=== PATIENT | female | born 1980 | race Caucasian/White ===

== ENCOUNTER 2018-10-25 21:39 | Emergency (ER) | payer BC ==
[~2018-10-25] VITALS: Ht 160 cm; Wt 99.8 kg
[~2018-10-25 21:39] MED LIST: ACETAMINOPHEN-1 EAC1 PO; LUVOX 50MG TABL50 M1 PO; MEDROLDOSEPACK PO; NEURONTIN 300300 M1 PO; PROAIR HFA8.5 GM INH; PROMETHAZINE D480 ML PO; TESSALON PERLE100 MG PO; WELLBUTRIN XL300 MG PO; XANAX 0.5 MG0.5 MG PO; ZPAK PO
[2018-10-25 22:01] LABS: URINE BILIRUBIN NEGATIVE (Negative); URINE BLOOD NEGATIVE (Negative); URINE CLARITY CLEAR; URINE COLOR YELLOW; URINE GLUCOSE-RANDOM NEGATIVE (Negative); URINE KETONES NEGATIVE (Negative); URINE LEUKOCYTES-REFLEX NEGATIVE (Negative); URINE NITRITE-REFLEX NEGATIVE (Negative); URINE PROTEIN NEGATIVE (Negative); URINE SPECIFIC GRAVITY 1.015 (1.005-1.030); URINE UROBILINOGEN 0.2 E.U./dl (0.2-1.0)
[2018-10-25 22:04] LABS: ABSOLUTE BASOPHILS 0.1 thou/uL (0.0-0.2); ABSOLUTE EOSINOPHILS 0.2 thou/uL (0.0-0.7); ABSOLUTE LYMPHOCYTES 2.6 thou/uL (0.8-5.3); ABSOLUTE MONOCYTES 0.7 thou/uL (0.0-1.2); ABSOLUTE NEUTROPHILS 8.6 thou/uL (1.6-8.1); EOSINOPHILS 1.7 %; HEMATOCRIT 41.6 % (37.0-47.0); HEMOGLOBIN 13.6 gm/dL (12.0-15.0); LYMPHOCYTES 21.6 %; MCH 26.6 pg (26.0-34.0); MCHC 32.6 g/dL (28.0-37.0); MCV 81.5 fL (80.0-100.0); MONOCYTES 5.7 %; MPV 6.4 fl. (7.2-11.1); NUCLEATED RBCS 0 /100WBC; PLATELET COUNT* 443 thou/uL (150-400); WBC 12.3 thou/uL (4.0-11.0)
[2018-10-25 22:10] LABS: CALCIUM 9.4 mg/dL (8.5-10.1); POTASSIUM 3.8 mmol/L (3.5-5.1)
[2018-10-25 22:15] LABS: ALBUMIN 3.6 g/dL (3.4-5.0); TOTAL BILIRUBIN 0.2 mg/dL (<0.1-1.0); TOTAL PROTEIN 7.7 g/dL (6.4-8.2)
[2018-10-26] MEDS ORDERED: NORCO 7.5-3251 EACH PO (02:19)
[2018-10-26] MEDS ORDERED: ZOFRAN ODT4 MG PO (02:19)
[2018-10-26 02:25] VITALS: BP 97/63
--- NOTE | 2018-10-26 13:58 | EKG ---
[place] [address] ELECTROCARDIOGRAM REPORT Name: LINDENSONIA Machuca Room: [facility]#: [id number] Admission: 10/25/18 Attend Phys: Discharge: 10/26/18 Date of : 76 Report #: [id number] THIS REPORT FOR: //name// [facility] ED Test Date: 2018-10-25 Test Time: 22:20:01 Pat Name: SONIA CHEATHAM Department: Room: Gender: F Medical Radiation Tech: Jitendra QUINONES : 1980 Requested By: Amber Ngo Order Number: [id number] MD: Du Davis Measurements Intervals [place] Rate: 77 P: 59 HI: 134 QRS: 36 QRSD: 92 T: 11 QT: 395 QTc: 448 Interpretive Statements Sinus rhythm Low voltage, precordial leads Borderline T abnormalities, anterior leads Compared to ECG 09/26/2015 16:02:39 Low QRS voltage now present T-wave abnormality still present Electronically Signed On 10-26-2018 13:58:06 QUALITY ASSURANCE SPECIALIST by Du Davis [email or web address] <ELECTRONICALLY SIGNED> By: Du Davis MD, FAC 10/26/18 1358 2220 2220 Du Davis MD, [facility] /EPI
== END 2018-10-26 02:25 | disposition home or self-care (01) ==
LOC: M.ERS 21:39
PROVIDERS: Emergency Medicine
DX: K80.20 Calculus of gallbladder without cholecystitis without obstruction (principal); R11.2 Nausea with vomiting, unspecified; F32.9 Major depressive disorder, single episode, unspecified